=== PATIENT | male | born 1960 | race Caucasian/White ===

== ENCOUNTER 2019-04-23 05:59 | Day surgery (SDC) | payer BC ==
[~2019-04-23 05:59] MED LIST: Buffered Lidocaine 1% SYRIN* 1 ML/SYRINGE INTRADERM ONE
[2019-04-23] MEDS ORDERED: Lactated Ringers 1000 ML Bag* 1,000 ML IV SCH (06:00)
[2019-04-23] MEDS ORDERED: Famotidine IV* 10 MG/ML 2 ML (20 mg) IV ONE (06:00)
[2019-04-23] MEDS ORDERED: Heparin VIAL(*) 5000 UNITS/ML VIAL (FIVE THOUSAND) ONE (06:12)
[2019-04-23] MEDS ORDERED: ceFAZolin 2 GM in NS PREMIX(*) 2 GM/100 ML BAG IVPB ONE (06:13)
[2019-04-23] MEDS ORDERED: Famotidine IV* 10 MG/ML 2 ML (20 mg) ONE (06:13)
[2019-04-23] MEDS ORDERED: Bupivacaine 0.5% W/EPI SDV* 30 ML VIAL ONE (06:55)
[2019-04-23] MEDS ORDERED: Ketorolac INJ* 30 MG/ML 1 ML VIAL ONE (07:08)
[2019-04-23] MEDS ORDERED: Propofol* 10 MG/ML 20 ML BTL ONE (07:08)
[2019-04-23] MEDS ORDERED: Dexamethasone IV* 4 MG/ML 1 ML (4 MG) ONE (07:08)
[2019-04-23] MEDS ORDERED: Rocuronium* 10 MG/ML VIAL ONE ×2 (07:08→08:38)
[2019-04-23] MEDS ORDERED: Midazolam* 1 MG/ML 5 ML VIAL (5 MG) ONE (07:08)
[2019-04-23] MEDS ORDERED: Lidocaine 2% PF * 5 ML VIAL ONE (07:08)
[2019-04-23] MEDS ORDERED: Ondansetron INJ* 2 MG/ML VIAL ONE (07:08)
[2019-04-23] MEDS ORDERED: fentaNYL* 50 MCG/ML 2 ML VIAL (100 MCG VIAL) ONE (07:08)
[2019-04-23] MEDS ORDERED: Ondansetron ODT TAB* 4 MG PO PRN (08:27)
[2019-04-23] MEDS ORDERED: Scopolamine 1.5 mg* PATCH TRANSDERM PRN (08:27)
[2019-04-23] MEDS ORDERED: Acetaminophen IV 1GM/100ML * 1,000 MG/100 ML VIAL IVPB ONE (08:27)
[2019-04-23] MEDS ORDERED: fentaNYL* 50 MCG/ML 2 ML VIAL (100 MCG VIAL) IV PRN (08:27)
[2019-04-23] MEDS ORDERED: Naloxone* 0.4 MG/ML 1 ML VIAL IV PRN (08:27)
[2019-04-23] MEDS ORDERED: Sugammadex * 500 MG/5 ML VIAL IV PUSH ONE (09:32)
[2019-04-23] MEDS ORDERED: Ibuprofen TAB* 600 MG PO PRN (09:59)
[2019-04-23] MEDS ORDERED: oxyCODONE/Acetamin 5/325 MG* TAB PO PRN (09:59)
[2019-04-23] MEDS ORDERED: Acetaminophen IV 1GM/100ML * 100 ML ONE (11:12)
[2019-04-23 12:25] VITALS: BP 118/80
--- NOTE | 2019-04-24 03:08 | OP ---
CC: Sofia Fraustohugh RPA-C * DATE OF OPERATION: 04/23/19 - SDS DATE OF : 58 SURGEON: Shorty Garcia MD SLOT MACHINE REPAIRER: DAMIR Weathers. ANESTHESIOLOGIST: René Summers MD ANESTHESIA: General endotracheal. PRE-OP DIAGNOSIS: Bilateral inguinal hernias. POST-OP DIAGNOSIS: Bilateral inguinal hernias. OPERATIVE PROCEDURE: Robotic preperitoneal repair of bilateral inguinal hernias with mesh. ESTIMATED BLOOD LOSS: Minimal. IV FLUIDS: Crystalloids. SPECIMENS: None. DRAINS: None. COMPLICATIONS: None. COUNTS: Instrument, needle, and sponge count correct. DESCRIPTION OF PROCEDURE: The patient was brought to the operating room and placed on the table in a supine position. Sequential compression devices were placed on both lower extremities. General anesthesia was administered. His abdomen was prepped and draped in the usual sterile fashion. He received appropriate intravenous antibiotics. A time-out was performed. Local anesthetic was infiltrated into the skin and soft tissue prior to making each incision. Entry into the abdomen was through a left upper quadrant incision accommodating an 8-mm optical trocar. After accessing the peritoneal cavity, carbon-dioxide was insufflated to a pressure of 15 mmHg. Under direct visualization, two additional 8 mm trocars were placed, one in the supraumbilical midline and one in the right upper quadrant. The robot was docked after introducing suture and Medtronic ProGrip mesh. Dissection proceeded on the right side incising the peritoneum approximately 8 cm above the ilioinguinal ligament extending this transversely to the median umbilical ligament. Preperitoneal space was then developed using blunt dissection down to the level of the pubic symphysis and identifying Cecilio's ligament, a direct inguinal hernia was identified. Inferior epigastric vessels were identified lateral to this and preserved. Dissection proceeded out laterally to the anterior superior iliac spine. After identifying and preserving the spermatic cord structures, and ascertaining that there was adequate dissection of the pocket, the anatomic right-sided inguinal hernia mesh was positioned to the midline. It was positioned to cover direct, indirect , and femoral spaces. Attention was then turned to the left side where the patient was noted to have an indirect inguinal hernia. Again, the peritoneal flap was raised about 8 cm above the ilioinguinal ligament and dissection again proceeded down to the midline of the pubic symphysis identifying the mesh on the contralateral side and extending the dissection to the left side. No direct hernia was noted. The indirect hernia was fully reduced and dissection again proceeded laterally to the anterior superior iliac spine. Again, the spermatic cord structures were identified and preserved. Left-sided anatomic mesh was then positioned and after assuring both meshes were in good position. The peritoneal flaps were closed with V-Loc 90 suture using 3-0 sutures and lastly a small rent was noted on the right side in the peritoneum and this was closed with 3-0 Vicryl sutures. Subsequently, the needles were retrieved and the instrumentation was removed and ports removed. Carbon dioxide was released and the incisions were closed with 4-0 Monocryl to approximate the skin. The DermaFlex was applied to the wounds and the patient was extubated uneventfully and then transferred to recovery room in stable condition. [id number] #: [id number] MTDD
[2019-04-26] MEDS ORDERED: Scopolamine PATCH Remove* 1 NOTE MISC PATCH OFF ONE (08:31)
== END 2019-04-23 12:26 | disposition home or self-care (01) ==
LOC: OR 05:59
PROVIDERS: ATTEND Surgery
DX: K40.20 Bilateral inguinal hernia, without obstruction or gangrene, not specified as recurrent (principal); I10 Essential (primary) hypertension; E78.5 Hyperlipidemia, unspecified; G47.33 Obstructive sleep apnea (adult) (pediatric)
CPT/HCPCS: 49650; S2900; J0690; J1100; J1644; J1885; J2250; J2405; J2704; J3010